=== PATIENT | male | born 1980 | race Caucasian/White ===

== ENCOUNTER 2016-08-09 14:05 | Emergency (ER) | payer MEDICAID ==
[2016-08-09 14:40] VITALS: BP 134/65; PULSE 85; RESP 18; TEMP 98.2; O2SAT 95
--- NOTE | 2016-08-09 15:44 | UCPHY ---
H & P Time Seen by Provider: 08/09/16 15:41 Patient Type: Established HPI/ROS: HPI: 35-year-old male presents to urgent care with chief concern left knee injury. Reports ongoing chronic knee pain with an acute on chronic injury yesterday when he slipped on the ice. Reports pain superiorly and medially. Reports decreased range of motion. Denies difficulty ambulating. Denies other injury at time of incident. Did not fall. Did not strike his head. No neck or back pain. No left hip, left leg, left ankle or foot pain. No weakness, numbness, or tingling of the left lower extremity. Review of Systems: Constitutional: no fever, chills, fatigue Cardiac: No cool or dusky extremity GI: no abdominal pain, vomiting, or diahrrea Musculoskeletal: See HPI Skin: no rashes, abrasions, lacerations Neuro: no numbness, tingling, or weakness. no decreased sensation. Past Medical/Surgical History: Bilateral arthroscopic knee surgeries Smoking Status: Current every day smoker Physical Exam: Vital signs stable, reviewed by me General: Awake, alert, calm, cooperative. No acute distress. Head: Normalocephalic. Atraumatic. EENT: PERRLA. EOMI. Neck: Supple, nontender. No midline tenderness, full ROM. Respiratory: Breathing unlabored. CV: Chest nontender, atraumatic. Distal pulses 2+. Brisk cap refill all extremities. GI: Deferred Neuro: Alert. Oriented x 3. Sensation intact all extremities. Skin: Skin warm, dry, intact. No ecchymosis, abrasions, or lacerations. Extremities: No discomfort to palpation of the left hip, leg, ankle or foot. Full ROM. No deformity, ecchymosis, swelling, erythema, abrasions or lacerations noted. There is discomfort to palpation of the superomedial aspect of the left knee. Full extension and decreased flexion. Negative valgus and varus stress. Negative Zahida. Negative AP drawer. Negative ballotment. Constitutional: Initial Vital Signs Temperature (C) 36.8 C 08/09/16 14:37 Heart Rate 85 08/09/16 14:37 Respiratory Rate 18 08/09/16 14:37 Blood Pressure 134/65 H 08/09/16 14:37 O2 Sat (%) 95 08/09/16 14:37 O2 Delivery Mode Room Air Allergies/Adverse Reactions: No Known Allergies Allergy (Verified 04/06/16 13:26) Home Medications: Medication Instructions Recorded Ibuprofen 600 mg PO Q6HRS PRN #30 tablet 08/09/16 Medical Decision Making ED Course/Re-evaluation: Patient refused knee x-ray. Requested a work note. Requested ibuprofen prescription. Have counseled him regarding need for follow-up with primary care for ongoing evaluation management of his knee. Refused a knee brace. Requested Alli wrap for his knee. Alli wrap was placed. Neurovascular status was intact after application. Differential Diagnosis: Differential diagnosis includes but is not limited to strain, internal derangement of knee including ligament, meniscal injury, dislocation, fracture Departure - Departure Clinical Impression: Knee injury Qualifiers: Qualifier Code: (S89.92XA) Unspecified injury of left lower leg, initial encounter Instructions: Knee Sprain (ED) Additional Instructions: Plan: You may use 600 mg of ibuprofen every 6 hours for fever, inflammation, or pain. Always take ibuprofen with food and stay well hydrated while taking. Do not exceed the maximum allowable dose in a 24 hour period which is 2400 mg. ice every 1-2 hours for 20 minutes for the the next 2-3 days Wear Alli wrap while up and about for the next week Follow up with Dr. Newell next week--When you call to schedule appointment, please let the office know you are an "ER follow up" appointment" Referrals: Kendal Newell MD [Primary Care Provider] - As per Instructions Prescriptions: Ibuprofen 600 mg PO Q6HRS PRN #30 tablet PRN Reason: Inflammation - PQRS PQRS Measurement: Not applicable
== END 2016-08-09 15:45 | disposition home or self-care (01) ==
LOC: CED 14:05
DX: S89.92XA Unspecified injury of left lower leg, initial encounter (principal); W00.0XXA Fall on same level due to ice and snow, initial encounter
CPT/HCPCS: G0463-PO

== ENCOUNTER 2017-05-02 18:44 | Emergency (ER) | payer MEDICAID ==
[2017-05-02 18:54] VITALS: RESP 16
[2017-05-02] MEDS ORDERED: predniSONE 20 MG TAB PO ONE (20:06)
[2017-05-02] MEDS ORDERED: FAMOTIDINE 20 MG TAB PO ONE (20:06)
[2017-05-02] MEDS ORDERED: diphenhydrAMINE 25 MG CAP PO ONE (20:06)
--- NOTE | 2017-05-02 20:08 | EDPHY ---
General Narrative: CHIEF COMPLAINT: Rash HISTORY OF PRESENT ILLNESS: Patient complains of rash to both knees. This started 2 days ago. Started when he was prescribed knee braces from his primary care physician. This was due to progressive osteoarthritis. The rash was present within hours or in the braces. It has become constant duration. Worsened throughout the last couple days. Extremely pruritic. No bleeding. No signs of infection. No pain in extremities. No fever chills. No numbness or tingling. No trauma or injury. No swelling of the lips or tongue. No rash to the face. No other associated complaints or modifying factors. REVIEW OF SYSTEMS: Ten systems reviewed and are negative unless otherwise noted in the HPI PCP: Dr. Pena PAST MEDICAL HISTORY: Recovering methamphetamine addict for osteoporosis. PTSD PAST SURGICAL HISTORY: None SOCIAL HISTORY: Not occur. No alcohol. Previous methamphetamine abuser. Five months over. Lives at a recovery house FAMILY HISTORY: Noncontributory EXAMINATION General Appearance: Alert, no distress Head: normocephalic, atraumatic Eyes: Pupils equal and round, no conjunctival pallor or injection ENT, Mouth: Mucous membranes moist. Uvula is midline. Airway is widely patent. No posterior pharyngeal erythema or edema. No swelling of the lips or tongue. No stridor Neck: Normal inspection, supple, non-tender. Midline trachea Respiratory: No retractions or distress Cardiovascular: Regular rate. Symmetric DP PT pulses Neurological: A&O, nonfocal, normal gait. Strength is intact in the lower limbs. Skin: Warm and dry, circumferential rash to both knees, matching the exact dimensions of his neoprene/silicone knee braces. This is urticarial. No petechiae. No purpura. Extremities: Nontender, no pedal edema. Rash as noted. Neurovascular intact distal to the rash Psychiatric: Mood and affect normal DIFFERENTIAL DIAGNOSES: Including but not limited to contact dermatitis, dermatitis, allergic reaction, cellulitis MDM: 8:05 p.m. Contact dermatitis of both knees. No systemic injury or rash. No petechiae or purpura. No anaphylaxis. No involvement of the airway. This exactly match as his braces that he was prescribed for knee pain. I have instructed him to no longer wear the braces. He is to take steroids for 5 days with 1st dose here. He is to take Benadryl every 6 hours as needed for the next 3-5 days, 1st dose here. I have also prescribed topical triamcinolone. Follow up with his prescribing physician to discuss further treatment for the knees. ED precautions for worsening symptoms, difficulty breathing couple and of the face , lips or tongue. He is comfortable this plan and discharged home stable condition. - History Smoking Status: Current every day smoker - Objective Vital Signs: Initial Vital Signs Temperature (C) 99.0 F 05/02/17 18:49 Heart Rate 90 05/02/17 18:49 Respiratory Rate 16 05/02/17 18:49 Blood Pressure 122/71 H 05/02/17 18:49 O2 Sat (%) 94 05/02/17 18:49 O2 Delivery Mode Room Air Allergies/Adverse Reactions: No Known Allergies Allergy (Verified 05/02/17 18:48) Home Medications: Medication Instructions Recorded Ibuprofen 600 mg PO Q6HRS PRN #30 tablet 08/09/16 Elavil 05/02/17 Triamcinolone 0.1% [Triamcinolone 1 verito TP TID #1 cream 05/02/17 0.1% Cream] predniSONE [Deltasone] 60 mg PO DAILY #12 tablet 05/02/17 Medications Given: Discontinued Medications Diphenhydramine HCl (Benadryl) 25 mg PO EDNOW ONE Stop: 05/02/17 20:07 Last Admin: 05/02/17 20:31 Dose: 25 mg Famotidine (Pepcid) 20 mg PO EDNOW ONE Stop: 05/02/17 20:07 Last Admin: 05/02/17 20:31 Dose: 20 mg Prednisone (Prednisone) 60 mg PO EDNOW ONE Stop: 05/02/17 20:07 Last Admin: 05/02/17 20:31 Dose: 60 mg Departure - Departure Disposition: Home, Routine, Self-Care Clinical Impression: Contact dermatitis Qualifiers: Contact dermatitis type: irritant Contact dermatitis trigger: other trigger Qualified Code(s): L24.89 - Irritant contact dermatitis due to other agents Condition: Good Instructions: Contact Dermatitis (ED) Additional Instructions: 1. Refrain from using the brace is the cause of the contact dermatitis 2. Benadryl 25-50 mg every 6 hours for the next 3-5 days 3. Prednisone 60 mg once daily for the next 4 days starting Thursday as prescribed. First dose was administered in the emergency department 4. Pepcid 20 mg by mouth once daily for the next 5 days. First dose given here 5. Triamcinolone topical cream as prescribed twice daily for 5-7 days Referrals: Kendal Newell MD [Primary Care Provider] - As per Instructions Prescriptions: predniSONE [Deltasone] 60 mg PO DAILY #12 tablet Triamcinolone 0.1% [Triamcinolone 0.1% Cream] 1 verito TP TID #1 cream
[2017-05-02 20:55] VITALS: BP 120/81; PULSE 97; TEMP 98.2; O2SAT 98
== END 2017-05-02 20:55 | disposition home or self-care (01) ==
DX: L24.89 Irritant contact dermatitis due to other agents (principal); F17.200 Nicotine dependence, unspecified, uncomplicated

== ENCOUNTER 2017-05-18 20:21 | Emergency (ER) | payer MEDICAID ==
[2017-05-18 20:25] VITALS: BP 135/90; PULSE 96; RESP 14; TEMP 99.5; O2SAT 98
[2017-05-18] MEDS ORDERED: predniSONE 20 MG TAB PO ONE (20:53)
[2017-05-18] MEDS ORDERED: diphenhydrAMINE 25 MG CAP PO ONE ×2 (20:53→20:59)
--- NOTE | 2017-05-18 20:57 | EDPHY ---
H & P Stated Complaint: itchy spreading rash Time Seen by Provider: 05/18/17 20:54 HPI/ROS: HPI: This is a 36-year-old male who presents with Chief Complaint: Rash Location: Knees Quality: Rash Duration: 1-2 weeks Signs and Symptoms: No fever, no easy bruising, no sore throat, + itchiness, no warmth, no drainage, no joint pain Timing: Gradually worsening Severity: [id number] Context: Patient reports that he wore his silicone braces on his legs approximately 2 weeks ago and developed a rash. He was seen in this emergency room and given Benadryl and topical steroid cream. The rash continues to spread is extremely pruritic. He has run out of his Benadryl and is requesting more. He is currently in a drug rehab program; sleeps on a plastic mattress. Modifying Factors: See HPI Comment: ROS: see HPI Constitutional: No fever, no chills, no weight loss Eyes: No blurred vision Respiratory: No shortness of breath, no cough Cardiovascular: No chest pain Gastrointestinal: No nausea, no vomiting, no diarrhea Genitourinary: No dysuria Extremities: No myalgias Neurologic: No weakness, no numbness Skin: No petechiae Hematologic: No bruising, no bleeding MEDICAL/SURGICAL/SOCIAL HISTORY: Medical history: Generally healthy. Does not take any regular medications. Surgical history: Denies Social history: Currently in a drug rehab house CONSTITUTIONAL: Obese well-appearing male, awake and alert, no obvious distress HEENT: Atraumatic and normocephalic, PERRL, EOMI. Tympanic membranes clear. Oropharynx clear, no exudate and moist pink mucosa. Airway patent. No lymphadenopathy. No meningismus. Cardiovascular: Normal S1/S2, regular rate, regular rhythm, without murmur rub or gallop. PULMONARY/CHEST: Symmetrical and nontender. Clear to auscultation bilaterally. Good air movement. No accessory muscle usage. ABDOMEN: Soft, nondistended, nontender, no rebound, no guarding, no peritoneal signs, no masses or organomegaly. No CVAT. EXTREMITIES: 2/2 pulses, no deformities, no clubbing, no cyanosis or edema. NEUROLOGICAL: no focal neuro deficits. GCS 15. SKIN: Warm and dry, patches of mild annular erythema and scaliness anterior and posterior bilateral knees/hands/elbows. blanches with palpation. No vesicles. no erythema. no rash. Good capillary refill. Source: Patient Exam Limitations: No limitations - Personal History Current Tetanus/Diphtheria Vaccine: Yes Tetanus Vaccine Date: 2009 - Medical/Surgical History Hx Asthma: No Hx Chronic Respiratory Disease: No Hx Diabetes: No Hx Cardiac Disease: No Hx Renal Disease: No Hx Cirrhosis: No Hx Alcoholism: No Hx HIV/AIDS: No Hx Splenectomy or Spleen Trauma: No Other PMH: PMHx: knee problems. PSHx: bilat knee - Social History Smoking Status: Current every day smoker Constitutional: Initial Vital Signs Temperature (C) 37.5 C 05/18/17 20:22 Heart Rate 96 05/18/17 20:22 Respiratory Rate 14 05/18/17 20:22 Blood Pressure 135/90 H 05/18/17 20:22 O2 Sat (%) 98 05/18/17 20:22 O2 Delivery Mode Room Air,Bi-Pap Allergies/Adverse Reactions: No Known Allergies Allergy (Verified 05/02/17 18:48) Home Medications: Medication Instructions Recorded Ibuprofen 600 mg PO Q6HRS PRN #30 tablet 08/09/16 Elavil 05/02/17 Triamcinolone 0.1% [Triamcinolone 1 verito TP TID #1 cream 05/02/17 0.1% Cream] predniSONE [Deltasone] 60 mg PO DAILY #12 tablet 05/02/17 diphenhydrAMINE [Benadryl 25 MG 25 mg PO Q6 PRN #12 tab 05/18/17 (*)] predniSONE [predniSONE TAPER] 10 mg PO DAILY 6 Days ea 05/18/17 Medical Decision Making ED Course/Re-evaluation: No systemic signs or signs of cellulitis/septic arthritis Given p.o. prednisone and Benadryl. Advised to avoid plastic and silicone products. Follow up with Dermatology if symptoms persist or worsen. Differential Diagnosis: Rash differential includes but is not limited to scabies, bedbugs, cellulitis, dermatitis, eczema. - Data Points Medications Given: Discontinued Medications Diphenhydramine HCl (Benadryl) 50 mg PO EDNOW ONE Stop: 05/18/17 20:54 Last Admin: 05/18/17 20:57 Dose: 50 mg Prednisone (Prednisone) 60 mg PO EDNOW ONE Stop: 05/18/17 20:54 Last Admin: 05/18/17 20:57 Dose: 60 mg Departure - Departure Disposition: Home, Routine, Self-Care Clinical Impression: Contact dermatitis Qualifiers: Contact dermatitis type: unspecified Contact dermatitis trigger: other trigger Qualified Code(s): L25.8 - Unspecified contact dermatitis due to other agents Condition: Good Instructions: Eczema (ED), Dermatitis (ED) Additional Instructions: Avoid all plastic and silicone products. Wash with mild soap and water daily. Take Benadryl 25-50 mg every 46 hours for allergic reaction/itching. Take all of prednisone taper as directed. Follow-up with geologist petroleum in 1 week if symptoms persist or worsen. Referrals: Kendal Newell MD [Primary Care Provider] - As per Instructions Prescriptions: diphenhydrAMINE [Benadryl 25 MG (*)] 25 mg PO Q6 PRN #12 tab PRN Reason: Itching predniSONE [predniSONE TAPER] 10 mg PO DAILY 6 Days ea
== END 2017-05-18 21:14 | disposition home or self-care (01) ==
DX: L25.8 Unspecified contact dermatitis due to other agents (principal); F17.200 Nicotine dependence, unspecified, uncomplicated

== ENCOUNTER 2017-06-08 22:00 | Emergency (ER) | payer MEDICAID ==
[~2017-06-08 22:00] MED LIST: PERMETHRIN 5% 60 GM CREAM TP SCH
[2017-06-08 22:06] VITALS: BP 153/82; PULSE 98; RESP 18; TEMP 97.9; O2SAT 96
--- NOTE | 2017-06-08 22:21 | EDPHY ---
General - History Smoking Status: Current every day smoker Narrative: CHIEF COMPLAINT: Rash HISTORY OF PRESENT ILLNESS: Patient complains of pruritic rash. This is been ongoing for several weeks. It started on the knee and had spread to the hands. He was seen for this several weeks ago. Treated with Benadryl and prednisone. Had improved for short period of time but started to spread to the chest and arms piece now between the fingers and the toes. It is extremely pruritic. No fever. No purulence. No fluctuance. He has scratched to the point that some of them have blood. He is treated that as we have prescribed not follow up with training and development head. No contact with known irritants. No new soaps or cleaning agents. No other associated complaints or modifying factors. REVIEW OF SYSTEMS: Ten systems reviewed and are negative unless otherwise noted in the HPI PCP: Dr. Newell SPECIALISTS: None PAST MEDICAL HISTORY: Reviewed SOCIAL HISTORY: Daily smoker. Lives at a [facility]. FAMILY HISTORY: Noncontributory EXAMINATION General Appearance: Alert, no distress Head: normocephalic, atraumatic Eyes: Pupils equal and round, no conjunctival pallor or injection ENT, Mouth: Mucous membranes moist. Airway patent Neck: Normal inspection, supple, midline trachea Respiratory: No retractions or distress. No retractions. Cardiovascular: Regular rate. Pulses intact distally symmetrically Gastrointestinal: Obese abdomen. Soft and nondistended. Neurological: A&O, nonfocal, normal gait Skin: Warm and dry. Diffuse excoriated rash to the trunk, hands, knees and between the toes. There is no palm are rash. No rash on the soles of the feet. This is blanchable. No petechiae. No purpura. No vesicles. Rash consistent with scabies. Excoriations without secondary infection. No cellulitis or abscess. Extremities: Nontender, symmetric range of motion Psychiatric: Mood and affect normal DIFFERENTIAL DIAGNOSES: Including but not limited to scabies, bedbugs, eczema, contact dermatitis MDM: 10:30 p.m. Rash to the trunk, hands and feet that is consistent with scabies. I do not appreciate any evidence of abscess or cellulitis. The excoriated areas do not appear to be infected. His vital signs are within normal limits. He will be treated with topical permethrin with instructions to leave on rinse in the morning. A given 1 dose of Decadron here as well as a topical steroid to use starting tomorrow for the inflammation. Recommend they follow up with his primary care physician week. Recommend that he return to ER for worse spreading of the rash, redness, warmth, fever. Recommend that anyone at the [facility] and has, in contact with him with any rash be treated with over- the-counter permethrin. Patient is comfortable with this plan and discharged in stable condition. (Beltran Kwong) Medical Decision Making: PHYSICIAN DOCUMENTATION: The patient was evaluated and managed by the Physician Order Entry Representative. My co- signature indicates that I have reviewed this chart and I agree with the findings and plan of care as documented. I am the secondary supervising physician. (Claudia Guzmán) - Objective Vital Signs: Initial Vital Signs Temperature (C) 36.6 C 06/08/17 22:02 Heart Rate 98 06/08/17 22:02 Respiratory Rate 18 06/08/17 22:02 Blood Pressure 153/82 H 06/08/17 22:02 O2 Sat (%) 96 06/08/17 22:02 O2 Delivery Mode Room Air Allergies/Adverse Reactions: No Known Allergies Allergy (Verified 06/08/17 22:06) Home Medications: Medication Instructions Recorded Ibuprofen 600 mg PO Q6HRS PRN #30 tablet 08/09/16 Elavil 05/02/17 diphenhydrAMINE [Benadryl 25 MG 25 mg PO Q6 PRN #12 tab 05/18/17 (*)] Levothyroxine 06/08/17 Permethrin 5% [Elimite 5%] 60 gm TP ONCE #1 crtube 06/08/17 Triamcinolone 0.1% [Triamcinolone 1 verito TP TID #1 cream 06/08/17 0.1% Cream] busPIRone 06/08/17 Medications Given: Discontinued Medications Dexamethasone (Decadron) 8 mg PO EDNOW ONE Stop: 06/08/17 22:23 Last Admin: 06/08/17 22:44 Dose: 8 mg Departure - Departure Disposition: Home, Routine, Self-Care Clinical Impression: Scabies, Dermatitis Condition: Good Instructions: Contact Dermatitis (ED), Eczema (ED), Scabies (ED) Additional Instructions: 1. Permethrin topical applied here. Leave on overnight and rinse off in the morning 2. This is a very contagious parasitic rash. Recommend [id number] Rid-x for anyone who has shared a room with you or come in contact with you and has any rash on their person 3. Recommend follow up with primary care physician later this week 4. Recommend topical triamcinolone as prescribed, 2-3 times daily for the next 7 days 5. ED precautions as discussed Referrals: Kendal Newell MD [Primary Care Provider] - As per Instructions Stand Alone Forms: Work Excuse Prescriptions: Permethrin 5% [Elimite 5%] 60 gm TP ONCE #1 crtube Triamcinolone 0.1% [Triamcinolone 0.1% Cream] 1 verito TP TID #1 cream
[2017-06-08] MEDS ORDERED: DEXAMETHASONE 4 MG TAB PO ONE (22:22)
== END 2017-06-08 23:06 | disposition home or self-care (01) ==
DX: B86 Scabies (principal); L30.9 Dermatitis, unspecified; F17.200 Nicotine dependence, unspecified, uncomplicated

== ENCOUNTER 2017-06-17 11:01 | Emergency (ER) | payer MEDICAID ==
[2017-06-17 11:06] VITALS: RESP 18; TEMP 97.7
--- NOTE | 2017-06-17 12:47 | EDPHY ---
HPI/HX/ROS/PE/MDM Narrative: CHIEF COMPLAINT: Needs medical clearance HPI: The patient is a 36-year-old male who was seen last week in the emergency department for rash which was diagnosed with scabies. The patient states he used permethrin cream twice and the rash is completely resolved. He denies any itching or new rash. Patient presents to the ER because he needs a medical certification that he is okay to go back to his care home house. He denies other complaints. REVIEW OF SYSTEMS: Aside from elements discussed in the HPI, a comprehensive 10-point review of systems was reviewed and is negative. PMH: Includes scabies SOCIAL HISTORY: Lives in a care home house. PHYSICAL EXAM: General:Patient is alert, in no acute distress. Skin: Normal color. No rash. Warm and dry. Extremities: Normal appearance. Full range of motion. No evidence of active scabies. Neuro: Oriented x3. Normal motor function. Normal sensory function. MDM: This patient has no active rash in denies any pruritus. Therefore, I think it is likely that he can return to his living facility with no concern of active scabies. I explained him that should he develop itching he would need to come back. General Time Seen by Provider: 06/17/17 12:31 Initial Vital Signs: Initial Vital Signs Temperature (C) 36.5 C 06/17/17 11:04 Heart Rate 85 06/17/17 11:04 Respiratory Rate 18 06/17/17 11:04 Blood Pressure 128/90 H 06/17/17 11:04 O2 Sat (%) 98 06/17/17 11:04 O2 Delivery Mode Room Air Allergies/Adverse Reactions: No Known Allergies Allergy (Verified 06/17/17 11:03) Home Medications: Medication Instructions Recorded Ibuprofen 600 mg PO Q6HRS PRN #30 tablet 08/09/16 Elavil 05/02/17 diphenhydrAMINE [Benadryl 25 MG 25 mg PO Q6 PRN #12 tab 05/18/17 (*)] Levothyroxine 06/08/17 Permethrin 5% [Elimite 5%] 60 gm TP ONCE #1 crtube 06/08/17 Triamcinolone 0.1% [Triamcinolone 1 verito TP TID #1 cream 06/08/17 0.1% Cream] busPIRone 06/08/17 Departure - Departure Disposition: Home, Routine, Self-Care Clinical Impression: Rash Condition: Good Instructions: Dermatitis (ED) Additional Instructions: This patient is medically clear for return to living facility. I see no evidence of active scabies. Referrals: Kendal Newell MD [Primary Care Provider] - As per Instructions
[2017-06-17 13:01] VITALS: BP 129/85; PULSE 75; O2SAT 99
== END 2017-06-17 13:01 | disposition home or self-care (01) ==
DX: R21 Rash and other nonspecific skin eruption (principal)

== ENCOUNTER 2017-07-01 18:29 | Emergency (ER) | payer MEDICAID ==
[2017-07-01 18:35] VITALS: RESP 16
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
[2017-07-01 20:34] VITALS: BP 136/86; PULSE 78; TEMP 98.2; O2SAT 95
== END 2017-07-01 20:32 | disposition home or self-care (01) ==
DX: S52.122A Displaced fracture of head of left radius, initial encounter for closed fracture (principal); S20.212A Contusion of left front wall of thorax, initial encounter; F17.200 Nicotine dependence, unspecified, uncomplicated; V18.0XXA Pedal cycle driver injured in noncollision transport accident in nontraffic accident, initial encounter; Y92.410 Unspecified street and highway as the place of occurrence of the external cause; Y99.8 Other external cause status; Y93.55 Activity, bike riding